=== PATIENT | male | born 1945 | race Caucasian/White ===

== ENCOUNTER 2016-02-13 06:16 | Day surgery (SDC) | payer MEDICARE ==
[2015-11-22 04:54] VITALS: BMI 31.7
[2016-02-13] MEDS ORDERED: Levofloxacin 500 mg/100 ml D5W 500 MG/100 ML RTU IV ONE (06:41)
[2016-02-13 06:57] LABS: AUTOMATED BASOPHIL 0.5 % (0-2); AUTOMATED EOSINOPHIL 3.5 % (0-5); AUTOMATED LYMPH 8.8 % (17-44); AUTOMATED NEUTROPHIL 78.2 % (45-76); MPV 7.9 fL (7.4-10.4)
[2016-02-13 07:07] LABS: BLOOD UREA NITROGEN 14 MG/DL (9-20); CALCIUM 12.1 MG/DL (8.4-10.2); CALCULATED OSMOLALITY 272 MOs/Kg (270-290); CHLORIDE 99 mEq/L (98-107); GLUCOSE 100 MG/DL (70-99); SODIUM LEVEL 141 mEq/L (137-146)
[2016-02-13] MEDS ORDERED: hydrALAZINE 20 MG/ML VIAL IV PRN (07:43)
[2016-02-13] MEDS ORDERED: HYDROmorphone 1 MG INJECTION IV PRN ×2 (07:43)
[2016-02-13] MEDS ORDERED: FENTANYL 100 MCG/2 ML VIAL IV PRN ×2 (07:43)
[2016-02-13] MEDS ORDERED: ONDANSETRON HCL 4 MG ODT TAB PO PRN (07:43)
[2016-02-13] MEDS ORDERED: MEPERIDINE 25 MG/ML TUBEX IV PRN (07:43)
[2016-02-13] MEDS ORDERED: PROMETHAZINE 25 MG/ML VIAL IV PRN (07:43)
[2016-02-13] MEDS ORDERED: LABETALOL 20 MG/4 ML SYRINGE IV PRN (07:43)
[2016-02-13] MEDS ORDERED: ONDANSETRON HCL 4 MG/2 ML VIAL IV PRN ×2 (07:43→09:40)
--- NOTE | 2016-02-13 07:44 | SC.ANESPOS ---
Post-Anesthesia Note LOC: [facility] Calling Post-Anesthesia Assessment: Awake, Returned to Baseline, Hemodynamically Stable , Pain Control Adequate Phase I & II Recovery Complete: Yes Apparent Anesthesia Complication: No : N - Vital Signs Blood Pressure: 137/83 Pulse: 76 Resp Rate: 18 O2 Sat: 96 Temp: 97.7 F
--- NOTE | 2016-02-13 07:45 | HIM.ANES ---
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) GROSS HEMATURIA (02/13/16) Consented Procedure: TRANSURETHRAL RESECTION OF BLADDER TUMOR - Focused Review of Systems Cardiac History: Yes: Hx Hypertension, Hx Cardiac Disorders, Hx Abnormal Cholesterol/Hyperlipidemia HEENT: Yes: Hx Vision Problem (PRESCRIPTION glasses), Other HEENT Problems Respiratory: Yes: Hx Snoring Gastrointestinal: Yes: Hx Gastrointestinal Disorders, Hx Colonoscopy (2005 BENIGN POLYPS), Hx Endoscopy (2000) No: Hx Gastroesophageal Reflux Disease Neurological/Musculoskeletal: Yes: Hx Back Pain No: Hx Neurological Disorders Physiological: No Hx Mental/Emotional Disorders Endocrine: Yes: Hx Hypothyroidism Blood/Autoimmune: No: Hx AIDS, Hx Hepatitis (type) Smoking Status: Former smoker Past Social History: Denies: Substance Use Disorder Surgical History: Yes: TURB (11/21/2015) - Focused Physical Exam NPO since: 02/12/161999 Mallampati: Class II Thyromental Distance: Greater than 3 Neck: Full Range of Motion Dental: Normal - no significant findings Cardiovascular/Chest: Normal Respiratory: Lungs clear Any problems with anesthesia, including nausea and vomiting?: No Any relatives with a history of Malignant Hyperthermia?: No Beta Caty given (if appropriate): N/A Does the patient have a history of Motion Sickness-: No Other: CBC/BMP/Other 02/13/16 06:40 02/13/16 06:40 Allergies Allergy/AdvReac Type Severity Reaction Status Date / Time No Known Allergies Allergy Verified 02/13/16 06:48 Home Medications Medication Instructions Recorded Last Taken Type Levothyroxine Sodium 112 mcg PO DAILY 11/20/15 02/13/16 04:00 History Lisinopril/Hydrochlorothiazide 1 tab PO DAILY 11/20/15 02/13/16 04:00 History [Lisinopril-Hctz 20-12.5 mg Tab] Pravastatin [Pravachol] 40 mg PO DAILY 11/20/15 02/12/16 History Tamsulosin HCl [Flomax] 0.4 mg PO DAILY 11/20/15 02/12/16 History Vitamin B Complex 1 each PO DAILY 11/20/15 02/12/16 History Height and Weight Patient's height 5 ft 8 in Patient's weight 190 lb BMI 31.7 Vital Signs Temperature 97.7 F 02/13/16 07:44 Pulse Rate 76 02/13/16 07:44 Respiratory Rate 18 02/13/16 07:44 Blood Pressure 137/83 02/13/16 07:44 Pulse Oxygen Saturation 96 02/13/16 07:44 - Anesthetic Plan Anesthesia Type: General ASA Class: 2 -: I have examined this patient and reviewed the medical record. The patient has been assessed prior to anesthesia. Risks and benefits of anesthesia and anesthetic technique options have been discussed and all questions answered. The patient accepts the risk and desires me to proceed with the planned anesthetic.
--- NOTE | 2016-02-13 09:38 | HIMOPRPT ---
PROCEDURE: DATE OF PROCEDURE: 02/13/16 PREOPERATIVE DIAGNOSIS: Bladder tumor . POSTOPERATIVE DIAGNOSIS: Bladder tumor . PROCEDURE PERFORMED: Trans urethral resection of bladder tumor. ANESTHESIA: General. SURGEON: Emmanuel Yoder MD PROCEDURE IN DETAIL: This patient was taken to the operating room namely a cystoscopy suite and was given general anesthesia. He was then put up in lithotomy position and was prepped and draped in usual sterile fashion. Urethra was calibrated from 20 Cuban to 28 Cuban with the help of Tresa sounds and then a 26 Cuban resectoscope was introduced into the bladder. With the help of loop electrode and proper cautery settings the dissection of the bladder tumor was carried out until the mostof bladder tumor resected including the surrounding healthy tissue as the tumor was close to the bladder neck resection of the bladder neck and adjoining prostate tissue was also carried out---any encountering bleeders were fulgurated---.we could see the stent from left kidney in bladder-- Once the resection was complete.---all the resected tissue was irrigated out with the help of Ellik evacuators a [address] Sparks catheter was left indwelling and connected to gravity drainage and a catheter plug was placed in the irrigant lymph patient tolerated procedure well and was returned to the recovery area in satisfactory condition this was basically a debulking of the tumor and pt will have follow up radiation and chemotherapy
[2016-02-13] MEDS ORDERED: Vaccine Screening Complete SCH (11:00)
[2016-02-13] MEDS: D5W/LR 1,000 ML IV SCH ×2 (11:37→20:56)
[2016-02-13] MEDS ORDERED: LIDOCAINE 100 MG PFS IV ONE (12:53)
[2016-02-13] MEDS ORDERED: ONDANSETRON HCL 4 MG/2 ML VIAL IV ONE (12:53)
[2016-02-13] MEDS ORDERED: MIDAZOLAM 2 MG/2 ML VIAL IV ONE (12:53)
[2016-02-13] MEDS ORDERED: PROPOFOL 200 MG/20 ML VIAL IV ONE (12:53)
[2016-02-13] MEDS ORDERED: DEXAMETHASONE 4 MG/ML VIAL IV ONE (12:53)
[2016-02-13] MEDS ORDERED: FENTANYL 100 MCG/2 ML VIAL IV ONE (12:53)
[2016-02-13] MEDS ORDERED: EPHEDrine 50 MG/ML VIAL IM ONE (12:53)
[2016-02-14] MEDS: HYDROCODONE 5 MG/ACETAMIN 325 MG TAB PO PRN ×3 (00:33→15:37)
[2016-02-14] MEDS: D5W/LR 1,000 ML IV SCH (06:34)
[2016-02-14 07:09] LABS: AUTOMATED BASOPHIL 0.1 % (0-2); AUTOMATED EOSINOPHIL 0.4 % (0-5); AUTOMATED LYMPH 9.7 % (17-44); AUTOMATED MONOCYTE 7.4 % (3-10); AUTOMATED NEUTROPHIL 82.4 % (45-76); MPV 8.1 fL (7.4-10.4)
[2016-02-14 07:20] LABS: BLOOD UREA NITROGEN 14 MG/DL (9-20); CALCIUM 11.6 MG/DL (8.4-10.2); CALCULATED OSMOLALITY 273 MOs/Kg (270-290); CHLORIDE 101 mEq/L (98-107); GLUCOSE 110 MG/DL (70-99); SODIUM LEVEL 141 mEq/L (137-146)
[2016-02-14] MEDS ORDERED: Levofloxacin 500 mg/100 ml D5W 500 MG/100 ML RTU IV SCH (08:00)
[2016-02-14] MEDS ORDERED: HYDROCHLOROTHIAZIDE PO SCH (09:00)
[2016-02-14] MEDS ORDERED: LEVOTHYROXINE 112 MCG (0.112 MG) TAB PO SCH (09:00)
[2016-02-14] MEDS ORDERED: HYDROCHLOROTHIAZIDE 12.5 MG CAP PO SCH (09:00)
[2016-02-14] MEDS ORDERED: VITAMIN B COMPLEX PO SCH (09:00)
[2016-02-14] MEDS ORDERED: LISINOPRIL 20 MG TAB PO SCH (09:00)
[2016-02-14] MEDS ORDERED: [UNRECOGNIZED DRUG - OTHER] PO SCH (09:00)
[2016-02-14] MEDS ORDERED: TAMSULOSIN HCL 0.4 MG CAP PO SCH (09:00)
[2016-02-14] MEDS ORDERED: LISINOPRIL PO SCH (09:00)
[2016-02-14] MEDS ORDERED: PRAVASTATIN 40 MG TABLET PO SCH (09:00)
[2016-02-14 09:56] VITALS: BP 141/78; PULSE 96; TEMP 98.2
[2016-02-14] MEDS ORDERED: VIT B-C COMPLEX (NEPHROVITE) TAB PO SCH (12:00)
[2016-02-14] MEDS ORDERED: MIDAZOLAM 2 MG/2 ML VIAL ONE (13:37)
[2016-02-14] MEDS ORDERED: LIDOCAINE 1% 30 ML VIAL (PRESERVATIVE FREE) ONE (13:38)
[2016-02-14] MEDS ORDERED: IODINE IV ONE (13:38)
[2016-02-14] MEDS ORDERED: FENTANYL 100 MCG/2 ML VIAL ONE (13:38)
[2016-02-14] MEDS ORDERED: IODIXANOL IV ONE (13:38)
[2016-02-14] MEDS ORDERED: [UNRECOGNIZED DRUG - OTHER] IV ONE (13:38)
--- NOTE | 2016-02-14 16:03 | DIRPT ---
CLINICAL DATA: Known bladder tumor with left ureteral obstruction, conversion of nephroureteral catheter to ureteral stent EXAM: CONVERSION OF NEPHROURETERAL CATHETER TO URETERAL STENT AND BACK UP NEPHROSTOMY CATHETER ANESTHESIA/SEDATION: Local anesthesia utilizing 1% xylocaine MEDICATIONS: None CONTRAST: 50 mL Omnipaque 300 PROCEDURE: The patient was advised of the possible risks and complications and agreed to undergo the procedure. Following this an appropriate time-out was performed. The patient was then placed on the angiographic table and prepped and draped in the usual sterile manner utilizing chlorhexidine. Initial fluoroscopic evaluation shows a 10 Indonesian nephroureteral catheter within the left collecting system. Contrast material was injected and shows a capacious collecting system in the kidney as well as what appears to be a an overly dilated urinary bladder. The Zacarias wire was then placed through the catheter and it was withdrawn following coiling of the wire in the urinary bladder. A 5 Indonesian Kumpe the catheter was then advanced into the bladder an the wire exchanged for an Amplatz wire. Over this an 8 Indonesian by 22 cm ureteral stent was placed with the proximal and coiled within the left renal pelvis and the distal and coiled within the urinary bladder. The bladder continues to appear over distended. Subsequently the wire was coiled within the collecting system of the left kidney and a 10 Indonesian nephrostomy catheter was placed without difficulty. Followup contrast injection shows antegrade flow of contrast into the urinary bladder. The nephrostomy catheter was then allowed to decompress and was capped. The catheter was sutured into place utilizing 0-Prolene and dressed in the standard sterile manner. The patient tolerated the procedure well and was returned to his room in satisfactory condition. COMPLICATIONS: None immediate FINDINGS: The left collecting system and bladder appear significantly dilated. Clinical correlation is recommended. IMPRESSION: Successful exchange of a left nephroureteral catheter for a 8 Indonesian 22 cm ureteral stent and back up 10 Indonesian nephrostomy catheter as described. The patient should return to radiology early of next week for recheck of the patency of the ureteral stent and possible tube removal. Nephrostomy tube removal should not be done at the bedside as the retention string is present and may cause stent removal. Electronically Signed By: North Shepard M.D. On: 02/14/2016 16:00
--- NOTE | 2016-02-14 17:21 | PCM.UROPRO ---
Chief Complaint: FEELING BETTER---VOIDING WELL FOLLOWING REMOVAL OF CATHETER---ANTEGRADE DOUBLE J STENT PLACED--PC NEPHROSTOMY TUBE IS CAPPED OFF Post Op Day #: 1 Post-op Assessment: Reports: Feels better, Voiding without difficulty, Urine color WNL - Physical Exam Vital Signs: Temperature: 98.2 F (02/14/16 09:55) HR: 96 (02/14/16 09:55) RR: 20 (02/14/16 09:55) BP: 141/78 (02/14/16 09:55) Pulse Ox: 97 (02/14/16 09:55) General: Alert, Oriented x3 HEENT: Normal Respiratory: Normal - CTA (VOIDING FINE) Result Diagrams: 02/14/16 05:50 02/14/16 05:50 Plan: DISCHARGE HOME TODAY---- FINAL DX--BLADDER CANCER CONDITION--STABLE FOLLOW UP--THURSDAY IN [facility]---MACROBID
[2016-02-14] MEDS ORDERED: NITROFURANTOIN 100 MG CAP PO ONE (18:00)
[2016-02-14] MEDS ORDERED: NITROFURANTOIN 100 MG CAP PO SCH (21:00)
== END 2016-02-14 18:14 | disposition home or self-care (01) ==
LOC: SDC 06:16 → MPS3 10:34
PROVIDERS: ADMIT Urology; ATTEND Urology
PROC: 0TBB8ZX Excision of Bladder, Via Natural or Artificial Opening Endoscopic, Diagnostic (ICD-10-PCS; principal; 2016-02-14)
PROC: 0TBC8ZZ Excision of Bladder Neck, Via Natural or Artificial Opening Endoscopic (ICD-10-PCS; 2016-02-14)
DX: C67.8 Malignant neoplasm of overlapping sites of bladder (principal); R31.0 Gross hematuria; N32.89 Other specified disorders of bladder
CPT/HCPCS: 50435; 50693; 52240; 52500; 80048; 85025; 86850; 86900; 86901; A9270; C1729; G0378; J1100; J1956; J2001; J2405; J2550; J3010; J3490; Q9967; J2250